=== PATIENT | female | born 1970 | race Caucasian/White ===

== ENCOUNTER 2022-11-25 12:18 | Day surgery (SDC) | payer OTHER, SELFPAY ==
[2022-11-25] VITALS (8 sets, daily range): BP systolic 105–154; BP diastolic 60–92; PULSE 58–97; RESP 14–19; TEMP 36.2–36.3; O2SAT 95–100
--- NOTE | ~2022-11-25 | CT_ITS ---
EXAMINATION: CT abdomen pelvis w con DATE: 11/25/2022 16:15 INDICATION: Right lower quadrant abdominal pain. TECHNIQUE: Computed tomography (CT) of the abdomen and pelvis was performed with 100 mL Omnipaque 350 intravenous contrast. Automated exposure control and iterative reconstruction technique were employe d. The dose-length product was 505.85 mGy-cm. COMPARISON: CT abdomen and pelvis 06/17/2011 FINDINGS: The visualized portions of the lung bases demonstrate mild atelectasis. No pleural effusion . The heart size is normal. No pericardial effusion. There is a 4 mm cyst in the liver. The gallbladd er, spleen, pancreas, adrenal glands, and right kidney are normal. There is a 5 mm cyst in left kidne y. The appendix is fluid-filled and dilated to 10 mm, increased from 5 mm on 06/17/2011. There are no p athologically enlarged lymph nodes. There is no free intraperitoneal fluid. There is mild thoracolumb ar spondylosis. IMPRESSION: 1. Acute appendicitis. I called this result to Gianni Ramirez. Reviewed, dictated and finalized at location A.
[2022-11-25 12:48] LABS: Basophils Absolute Auto 0.1 K/mm3 (0.0-0.1); Basophils Percent Auto 0.9 % (0.2-1.2); Eosinophils Absolute Auto 0.1 K/mm3 (0-0.3); Eosinophils Percent Auto 0.9 % (0-4.4); Hematocrit 41.7 % (37.0-47.0); Hemoglobin 13.7 g/dL (12.0-15.0); Immature Granulocyte Absolute 0.04 K/mm3 (0.00-0.031); Immature Granulocyte Percent A 0.5 % (0-0.5); Lymphocytes Absolute Auto 2.93 K/mm3 (0.9-3.2); Lymphocytes Percent Auto 36.5 % (18.3-44.2); Mean Corpuscular HGB Conc 32.9 g/dl (32-36); Mean Corpuscular Hemoglobin 30.9 pg (26-34); Mean Corpuscular Volume 93.9 fl (80-100); Monocytes Absolute Auto 0.4 K/mm3 (0.1-0.6); Monocytes Percent Auto 5.2 % (2.6-8.5); Neutrophils Absolute Auto 4.5 K/mm3 (1.3-6.7); Platelet Count Result 223 k/mm3 (150-375); Red Blood Count 4.44 M/mm3 (4.2-5.4); Red Cell Distribution Width 12.8 % (11.5-14.5)
[2022-11-25 12:58] LABS: Alanine Aminotransferase 17 U/L (6-35); Albumin Level 3.6 g/dL (3.5-5.1); Alkaline Phosphatase 49 U/L (38-126); Anion Gap 7 mmol/L (8-16); Aspartate Amino Transferase 21 U/L (14-36); Bilirubin,Total 0.8 mg/dL (0.2-1.3); Blood Urea Nitrogen 10 mg/dL (7-17); Calcium 8.7 mg/dL (8.4-10.2); Carbon Dioxide 23 mmol/L (22-30); Chloride 107 mmol/L (98-107); Estimated CRCL calculation 74 ml/min; Estimated Glomerular Filt Rate > 60; Glucose 108 mg/dL (65-110); Lipase 60 U/L (23-300); Potassium 3.9 mmol/L (3.4-5.0); Sodium 137 mmol/L (137-145)
[2022-11-25 13:05] LABS: Appearance Urine Cloudy (Clear); Bacteria Urine 1+ /hpf; Bilirubin Urine Negative (Negative); Blood Urine 1+ (Negative); Color Urine Yellow (Yellow); Glucose Urine UA Negative (Negative); Ketones Urine Trace mg/dL (Negative); Leukocyte Esterase Ur Negative LEU/UL (Negative); Need Manual Microscopic Reviewed; Nitrate Urine Negative (Negative); Non Pathogenic Casts 0-2; Protein Urine Negative (Negative); Specific Grav Ur 1.019 (1.001-1.035); Squamous Epithelial Cell Urine Moderate /hpf (Few); Urobilinogen Urine 0.2 mg/dL (<2.0); WBC Urine 0-5 /hpf; pH Urine 5.5 (5.0-9.0)
[2022-11-25 13:07] LABS: Add Urine Microscopic? YES
--- NOTE | 2022-11-25 14:31 | ED.GENADULT ---
HPI - General Adult General Chief complaint: Abdominal Pain Stated complaint: right groin pain Time Seen by Provider: 11/25/22 13:18 Source: patient Mode of arrival: ambulatory Limitations: no limitations History of Present Illness HPI narrative: This is a 52-year-old female who presents to the ED with chief complaint of right lower quadrant abdominal pain that started yesterday evening before dinner. Denies any nausea or vomiting. Denies any urinary symptoms. She states that the pain stays right there in the right lower quadrant and does not radiate. Describes it as sharp. She states it comes in waves. She right now she describes it as a 4 out of 10 pain. Denies fevers, chills, chest pain, shortness of breath, cough. States she is chronically constipated and often has gas pains due to this but wants to rule out something worse. Reports abdominal surgical history of tubal ligation but still has her ovaries. Related Data Allergies Allergy/AdvReac Type Severity Reaction Status Date / Time sulfamethizole Allergy Unknown rash Verified 09/07/19 08:06 sulfamethoxazole Allergy Unknown rash Verified 09/07/19 08:06 trimethoprim Allergy Unknown Rash Verified 09/07/19 08:06 PMFSH Past Medical History Medical History Hypothyroidism (acquired) Overeating Family History Family History Mother Patient's mother is in good health Father Patient's father is in good health Sibling Family history of malignant neoplasm of testis Other Diabetes mellitus Social History Social History Smoking status: Never smoker Second hand tobacco smoke exposure: No Alcohol intake: current Exam Narrative: GENERAL: Well-appearing, well-nourished, and in no acute distress. HEAD: Normocephalic, atraumatic. EYES: PERRLA and EOMI. ENT: Nares clear, no rhinorrhea or epistaxis. Mucous membranes moist. Oropharynx without tonsillar hypertrophy exudate or other lesions. NECK: Supple. No adenopathy or masses. CHEST: No respiratory distress. Clear to auscultation. No wheezes rales or rhonchi HEART: Regular rate and rhythm. No murmur heard. Normal peripheral pulses. ABDOMEN: Focal right lower quadrant tenderness present. Soft, otherwise nontender, nondistended, normal active bowel sounds. Negative Agnulo sign. MSK: Normal range of motion. No edema. SKIN: Warm, dry, no rash. NEURO: Alert and oriented x3. No focal deficits. PSYCH: Normal mood and affect. Course Vital Signs Vital signs: Vital Signs Temperature 97.1 F L 11/25/22 12:28 Pulse Rate 58 L 11/25/22 12:28 Respiratory Rate 17 11/25/22 12:28 Blood Pressure 154/87 H 11/25/22 12:28 Pulse Oximetry 100 11/25/22 12:28 Oxygen Delivery Room Air 11/25/22 12:28 Temperature 97.3 F L 11/25/22 18:25 Pulse Rate 84 11/25/22 18:25 Respiratory Rate 19 11/25/22 18:25 Blood Pressure 111/67 11/25/22 18:25 Pulse Oximetry 100 11/25/22 18:25 Oxygen Delivery Simple Face Mask 11/25/22 18:25 Oxygen Flow Rate 8 11/25/22 18:25 Medical Decision Making MDM Narrative Medical decision making narrative: This is a 52-year-old female who presents to the ED with chief complaint of right lower quadrant pain beginning last night. Vitals are normal. Afebrile. She has focal right lower quadrant tenderness on exam. No elevated white count. UA shows trace ketones and 1+ blood but no evidence of overt infection. CMP unremarkable. CT scan results were called to me. I called Dr. Keyes (general surgery) who wants to take the patient to the OR. She is not septic appearing but her pain is getting worse while she is here. Pain control was given. Antibiotics ordered but patient was taken to the OR before we were able to administer. Discussed the plan for surgery with the patient and she is understanding and ag
[2022-11-25] MEDS: ONDANSETRON INJ 4 MG/2 ML VIAL IV PUSH (16:26)
[2022-11-25] MEDS: MORPHINE SULFATE (*CRX) 4 MG/ML INJ IV PUSH (16:26)
--- NOTE | 2022-11-25 16:38 | PM.SD2 ---
Same Day Admit/Disch: HPI History of Present Illness Chief complaint: right lower quadrant pain Narrative: Nannette Zavala is a 52 year old female who started having pain in the right lower quadrant yesterday afternoon before dinner time. The pain persisted and in fact got worse. She does have some chronic constipation and gets episodes of abdominal pain. This pain persisted and she came to the emergency room. Exam in the emergency room showed focal tenderness in the right lower quadrant. Her white blood cell count was normal. She has not had any nausea or vomiting. She had a CT scan of the abdomen and pelvis which showed a 10 mm dilated appendix that was fluid filled and had some surrounding inflammation. It was read as acute appendicitis. She is taken to surgery now for laparoscopic appendectomy. [facility] Past Medical History Medical History Hypothyroidism (acquired) Overeating Family History Family History Mother Patient's mother is in good health Father Patient's father is in good health Sibling Family history of malignant neoplasm of testis Other Diabetes mellitus Social History Social History Smoking status: Never smoker Second hand tobacco smoke exposure: No Alcohol intake: current Same Day Admit/Disch: Med Pre-admit Medications Home Medications Medication Instructions Recorded Confirmed Type etonogestrel 0.12 mg-ethinyl See Rx Instructions vaginal ONCE 09/07/19 09/07/19 Rx estradiol 0.015 mg/24 hr vaginal #3 ea ring (NuvaRing) levothyroxine 112 mcg capsule 112 mcg PO DAILY #102 caps 09/07/19 09/07/19 Rx phentermine 37.5 mg capsule 37.5 mg PO DAILY #30 caps 09/07/19 09/07/19 Rx omeprazole 40 mg capsule,delayed 40 mg PO DAILY #90 caps 06/02/21 Rx release ketorolac 10 mg tablet 10 mg PO Q6H 4 days #16 tabs 11/25/22 Rx oxycodone-acetaminophen 5 mg-325 0.5 - 1 tablet PO Q6H PRN pain #10 11/25/22 Rx mg tablet tabs Exam Const: General: comfortable, no acute distress, alert and awake HENMT: Head: normocephalic and atraumatic Mouth: Yes Normal oral and palatal mucosa present Eyes: Conjunctivae: conjunctivae normal Pupils: Equal, round and reactive pupils present EOM: EOMs intact bilaterally Neck: Neck: normal visual inspection, no lymphadenopathy and nontender Resp: Effort & Inspection: normal respiratory effort Auscultation: clear to auscultation bilaterally Cardio: Rate: regular rate Rhythm: regular rhythm Heart sounds: no gallops, no murmurs and no rubs GI: Inspection: normal to inspection and non-distended GI Palp: Yes Soft to palpation, Yes Tenderness to palpation present (GI) ( tender with guarding right lower quadrant), Yes Guarding due to palpation present (GI), No Hepatomegaly present and No Splenomegaly present Auscultation: normal bowel sounds Skin: Lesions: no lesions Rashes: no rashes Neuro: General: no focal motor deficits and CN's II-XI intact bilaterally Cranial nerves: Yes Equal, round and reactive pupils present, Yes Bilaterally intact EOM present, Yes facial symmetry and Yes Midline tongue present Speech: normal speech Motor exam (neuro): 5/5 motor strength present throughout and Motor abnormalities not present Extrem: General: no clubbing, cyanosis or edema and edema Psych: Affect: normal affect Thought process: Normal thought process present Insight: Good insight present (Psych) DS: Data Data Completed and Pending Labs on day of discharge: Labs from last 24 hours 11/25/22 11/25/22 12:39 12:32 WBC 8.0 RBC 4.44 Hgb 13.7 Hct 41.7 MCV 93.9 MCH 30.9 MCHC 32.9 RDW 12.8 Plt Count 223 MPV 11.0 H Immature Gran % (Auto) 0.5 Neut % (Auto) 56.0 Lymph % (Auto) 36.5 [place] % (Auto) 5.2 Eos % (Auto) 0.9 Baso % (Auto) 0.9 Lymph # (Auto) 2.93
--- NOTE | 2022-11-25 16:46 | WPDHPUPDATE1 ---
History and Physical Update Update Date/Time: 11/25/22 16:46 History and Physical has been reviewed, including an updated exam of the patient. There are NO changes in the patient's condition. Risks, benefits, and alternatives have been discussed and questions answered. Patient agrees to proceed with procedure.
--- NOTE | 2022-11-25 17:01 | WPDANESEPP ---
Anes - Eval Pre Procedure Procedure: Operation Date: 11/25/22 17:00 Proposed Procedures p Laparoscopic Appendectomy - Chencho Keyes MD Date/Time: 11/25/22 17:01 Pre Op Diagnosis: right lower quadrant pain Patient Data Age: 52 Gender: F Height: 1.55 m Weight: 70.31 kg Last Vital Signs Temp 36.2 C L 11/25/22 12:28 Pulse 58 L 11/25/22 13:20 Resp 14 11/25/22 13:20 BP 121/92 H 11/25/22 13:20 Pulse Ox 99 11/25/22 13:20 O2 Del Method Room Air 11/25/22 13:20 Allergies Allergy/AdvReac Type Severity Reaction Status Date / Time sulfamethizole Allergy Unknown rash Verified 09/07/19 08:06 sulfamethoxazole Allergy Unknown rash Verified 09/07/19 08:06 trimethoprim Allergy Unknown Rash Verified 09/07/19 08:06 Home Medications Medication Instructions Recorded Confirmed Type etonogestrel 0.12 mg-ethinyl See Rx Instructions vaginal ONCE 09/07/19 09/07/19 Rx estradiol 0.015 mg/24 hr vaginal #3 ea ring (NuvaRing) levothyroxine 112 mcg capsule 112 mcg PO DAILY #102 caps 09/07/19 09/07/19 Rx phentermine 37.5 mg capsule 37.5 mg PO DAILY #30 caps 09/07/19 09/07/19 Rx omeprazole 40 mg capsule,delayed 40 mg PO DAILY #90 caps 06/02/21 Rx release Laboratory Tests 11/25/22 11/25/22 12:32 12:39 WBC 8.0 K/mm3 (4.5-10.0) RBC 4.44 M/mm3 (4.2-5.4) Hgb 13.7 g/dL (12.0-15.0) Hct 41.7 % (37.0-47.0) MCV 93.9 fl (80-100) MCH 30.9 pg (26-34) MCHC 32.9 g/dl (32-36) RDW 12.8 % (11.5-14.5) Plt Count 223 k/mm3 (150-375) MPV 11.0 H fl (7.4-10.4) Immature Gran % (Auto) 0.5 % (0-0.5) Neut % (Auto) 56.0 % (45.5-73.1) Lymph % (Auto) 36.5 % (18.3-44.2) [place] % (Auto) 5.2 % (2.6-8.5) Eos % (Auto) 0.9 % (0-4.4) Baso % (Auto) 0.9 % (0.2-1.2) Lymph # (Auto) 2.93 K/mm3 (0.9-3.2) [place] # (Auto) 0.4 K/mm3 (0.1-0.6) Eos # (Auto) 0.1 K/mm3 (0-0.3) Baso # (Auto) 0.1 K/mm3 (0.0-0.1) Abs Immat Gran (auto) 0.04 H K/mm3 (0.00-0.031) Absolute Neuts (auto) 4.5 K/mm3 (1.3-6.7) Absolute Nucleated RBC 0.0 K/mm3 (0.0-0.012) Nucleated RBC % 0.0 % (0.0-0.2) Sodium 137 mmol/L (137-145) Potassium 3.9 mmol/L (3.4-5.0) Chloride 107 mmol/L (98-107) Carbon Dioxide 23 mmol/L (22-30) Anion Gap 7 L mmol/L (8-16) BUN 10 mg/dL (7-17) Creatinine 0.70 mg/dL (0.7-1.0) Estim Creat Clear Calc 74 ml/min Estimated GFR > 60 (59 - ) Glucose 108 mg/dL (65-110) Calcium 8.7 mg/dL (8.4-10.2) Total Bilirubin 0.8 mg/dL (0.2-1.3) AST 21 U/L (14-36) ALT 17 U/L (6-35) Alkaline Phosphatase 49 U/L (38-126) Total Protein 6.0 L g/dL (6.3-8.2) Albumin 3.6 g/dL (3.5-5.1) Lipase 60 U/L (23-300) Urine Color Yellow (Yellow) Urine Appearance Cloudy H (Clear) Urine pH 5.5 (5.0-9.0) Ur Specific [place] 1.019 (1.001-1.035) Urine Protein Negative mg/dL (Negative) Urine Glucose (UA) Negative mg/dL (Negative) Urine Ketones Trace H mg/dL (Negative) Ur Blood (Man) 1+ H (Negative) Urine Nitrate Negative (Negative) Urine Bilirubin Negative (Negative) Urine Urobilinogen 0.2 mg/dL (<2.0) Add Ur Microanalysis Reviewed Leukocyte Esterase Rfl Negative LUZMA/UL (Negative) Urine RBC 3-5 H /hpf (0-2) Urine WBC 0-5 /hpf Ur Squamous Epith Cells Moderate /hpf (Few) Urine Bacteria 1+ H /hpf Urine Casts 0-2 Patient hx anesthesia problems: none Family hx anesthesia problems: none Results Review: All pre-operative results and documents have been reviewed as part of the pre-operative evaluation. [facility] Past Medical History Medical History (Reviewed 07
[2022-11-25] MEDS: metroNIDAZOLE 500 MG/ISO 100ML 500 MG/100 ML BAG 100 MG IVPB (17:13)
--- NOTE | 2022-11-25 17:13 | P.PNAN_ITS ---
Anes - Eval Final PreProcedure Day of Procedure 11/25/22 17:13 Patient weight: overweight Heart: regular rate and rhythm Lungs: clear to auscultation Airway: Mallampati scale class II Neurological: alert and oriented Last oral intake: >/= 8 hours ASA classification: II Emergent: no Anesthetic plan: proceed Anesthesia type and monitoring: general ETT and standard monitoring Results Review: All pre-operative results and documents have been reviewed as part of the pre- operative evaluation. Informed Consent: The patient's anesthetic plan and its attendant risks and benefits were discussed with the patient/family/POA. Questions were solicited and answers provided to the satisfaction of the patient/family/POA.
[2022-11-25] MEDS: BUPIVACAINE/EPINEPHRINE 0.25% 50 ML VIAL 20 ML INFILTRATE (17:36)
[2022-11-25] MEDS: KETOROLAC 30 MG/ML VIAL (*BKC) IV PUSH (18:05)
--- NOTE | 2022-11-25 18:14 | W.PM.PROC2 ---
Procedure Note - Detailed Date of Procedure 11/25/22 Pre-op Diagnosis Acute appendicitis Post-op Diagnosis Same Procedure Performed Laparoscopic appendectomy Surgeon Chencho Keyes MD Anesthesia General and Local (0.5% Marcaine with epinephrine) Indications Patient began having right lower quadrant abdominal pain yesterday evening. He got better and she went to bed but then this morning it was back and worse. It was persistent through and she came to the emergency room. She was noted to have tenderness in the right lower quadrant. She had an abnormal CT scan which showed a dilated appendix with that was fluid filled and had signs of inflammation. I reviewed her CT scan and the appendix was retrocecal. She had a normal white count. She is taken to surgery now for laparoscopic appendectomy. Findings The appendix was retrocecal in the retroperitoneum. The distal 3rd of the appendix appeared to be inflamed consistent with acute appendicitis. Description of Procedure Patient was taken to surgery and induced into general anesthesia. The abdomen is prepped and draped. Trocars were placed in the usual fashion in the left anterior axillary line. These were applied Medical optical trocars and replaced under direct visualization. The patient was placed in Trendelenburg with the right-side elevated. The appendix was difficult to visualize as the distal ileum was adherent to the right lateral sidewall and the appendix was retrocecal. I took down these distal ileal adhesions and then cut into the retroperitoneum. I dissected in the retroperitoneum and gradually exposed the appendix. The proximal appendix appeared normal but the distal appendix was dilated particularly at its tip. Eventually the appendix was fully mobilized. There were numerous adhesions to the appendix it had to be taken down. The appendix was then elevated and the mesoappendix was thoroughly cauterized and divided. The appendiceal artery was particularly cauterized and divided. We skeletonized the appendix at its base. I then ligated the base the appendix with a Vicryl endoloop. The appendix was amputated just above the ligature and the mucosa of the appendiceal stump was cauterized. The appendix was placed immediately in an Endo-Catch bag and retrieved through the 10 11 left lower quadrant trocar site. We replaced the trocar and then reviewed the areas of dissection as well as the appendiceal stump. All looked good with no evidence of bleeding or other problems. We then evacuated CO2 and removed the trocar sleeves. Skin wounds were closed with subcuticular 4-0 Monocryl skin suture. The wounds were dressed with Exofin surgical adhesive. The patient was awakened and taken to recovery in good condition. Sponge and needle counts were correct x2. Estimated Blood Loss -5 Drains No Packing No Pathology Yes (Appendix) Complications No immediate complications Condition Stable Disposition PACU [facility] Billing Surgery - Charge Forward: Surgery Billing (Laparoscopic appendectomy)
[2022-11-25] MEDS: LACTATED RINGERS 1,000 ML 30 ML IV CONT ×2 (18:25)
== END 2022-11-25 20:10 | disposition home or self-care (01) ==
LOC: ANHED 16:44 → ANHOUTPT 16:48
PROVIDERS: Emergency Medicine; Emergency Provider Physician Assistant; Visit Provider Surgery
PROC: 0DTJ4ZZ Resection of Appendix, Percutaneous Endoscopic Approach (ICD-10-PCS; CPT 44970; principal; 2022-11-25 17:00)
DX: K35.80 Unspecified acute appendicitis (principal); E03.9 Hypothyroidism, unspecified
CPT/HCPCS: 44970; 36415; 74177; 80053; 81001; 83690; 85025; 88304; 96374; 96375; 99285; J0330; J0690; J0696; J1100; J1836; J1885; J2250; J2270; J2405; J2704; J3010; J7030; J7120; Q9967

== ENCOUNTER 2023-10-18 16:48 | Emergency (ER) | payer BC, SELFPAY ==
--- NOTE | ~2023-10-18 | CT_ITS ---
EXAMINATION: CT abdomen pelvis wo con DATE: 10/18/2023 17:49 INDICATION: stone TECHNIQUE: Computed tomography (CT) of the abdomen and pelvis was performed without intravenous contr ast. Automated exposure control and iterative reconstruction technique were employed. The dose-length product was 333.48 mGy-cm. COMPARISON: 11/25/2022. FINDINGS: Lower thorax: Asymmetric soft tissue density in the right breast Liver: Normal. Biliary/Gallbladder: Gallbladder is normal. No bile duct dilation. Pancreas: No mass or duct dilation. Spleen: Normal. Adrenals:No mass. Kidneys: No suspicious mass, obstructing stone, or hydronephrosis. Punctate right lower pole calcific ation. GI tract: No small or large bowel dilation. Surgically absent appendix. Mesentery/Peritoneum: No ascites, mass, or free air. Retroperitoneum: No mass. Pelvis: Pelvic organs are within normal limits. Soft Tissues: Small uncomplicated fat-containing umbilical hernia. Bones: No acute osseous finding. IMPRESSION: Asymmetric soft tissue density in the right breast, recommend diagnostic breast ultrasound and mammog soo further evaluation. No acute abdominopelvic process detected. Specifically, no CT evidence of obstructive uropathy. Punctate right lower pole nephrolithiasis. Reviewed, dictated and finalized at location K. IMPRESSION: Asymmetric soft tissue density in the right breast, recommend diagnostic breast ultrasound and mammography further evaluation. No acute abdominopelvic process detected. Specifically, no CT evidence of obstructive uropathy. Punctate right lower pole nephrolithiasis.
--- NOTE | ~2023-10-18 | US_ITS ---
EXAMINATION: US pelvic complete w TV DATE: 10/18/2023 19:47 INDICATION: RLQ pain TECHNIQUE: Multiple transabdominal and endovaginal sonographic images of the pelvis were obtained. COMPARISON: CT abdomen pelvis, same date. FINDINGS: Uterus: 7.7 x 3.0 x 4.7 cm. Endometrial complex measures 7 mm. Irregular endometrium with indistinct margins. 9 mm hypoechoic focus in the endometrial cavity. Right Ovary: 2.5 x 1.6 x 2.0 cm. Vascular flow is present. 1.6 cm simple cyst. Left Ovary: Not visualized. There is no free fluid in the pelvis. IMPRESSION: Irregular, thickened endometrium. 9 mm hypoechoic focus in the endometrial cavity which may represent clot, polyp or other mass. Consider gynecology referral for sonohysterography and/or endometrial laron pling. Left ovary not visualized, grossly normal appearance on the prior CT. Reviewed, dictated and finalized at location K. IMPRESSION: Irregular, thickened endometrium. 9 mm hypoechoic focus in the endometrial cavi ty which may represent clot, polyp or other mass. Consider gynecology referral for sonohysterography and/or endometrial sampling. Left ovary not visualized, grossly normal appearance on the prior CT.
[2023-10-18 16:49] VITALS: BP 169/99; PULSE 57; RESP 18; TEMP 36.4; O2SAT 100
[2023-10-18 17:16] LABS: Basophils Absolute Auto 0.1 K/mm3 (0.0-0.1); Basophils Percent Auto 0.8 % (0.2-1.2); Eosinophils Absolute Auto 0.1 K/mm3 (0-0.3); Eosinophils Percent Auto 0.9 % (0-4.4); Hematocrit 44.4 % (37.0-47.0); Hemoglobin 14.3 g/dL (12.0-15.0); Immature Granulocyte Absolute 0.04 K/mm3 (0.00-0.031); Immature Granulocyte Percent A 0.5 % (0-0.5); Lymphocytes Absolute Auto 2.64 K/mm3 (0.9-3.2); Lymphocytes Percent Auto 30.7 % (18.3-44.2); Mean Corpuscular HGB Conc 32.2 g/dl (32-36); Mean Corpuscular Hemoglobin 31.2 pg (26-34); Mean Corpuscular Volume 96.7 fl (80-100); Mean Platelet Volume 11.7 fl (7.4-10.4); Monocytes Absolute Auto 0.5 K/mm3 (0.1-0.6); Monocytes Percent Auto 5.6 % (2.6-8.5); Neutrophils Absolute Auto 5.3 K/mm3 (1.3-6.7); Neutrophils Percent Auto 61.5 % (45.5-73.1); Platelet Count Result 237 k/mm3 (150-375); Red Blood Count 4.59 M/mm3 (4.2-5.4); White Blood Count 8.6 K/mm3 (4.5-10.0)
[2023-10-18 17:21] LABS: Appearance Urine Clear (Clear); Bacteria Urine Rare /hpf; Bilirubin Urine Negative (Negative); Blood Urine Non-Hemolyzed Trace (Negative); Color Urine Yellow (Yellow); Glucose Urine UA Negative (Negative); Ketones Urine Negative (Negative); Leukocyte Esterase Ur Negative LEU/UL (Negative); Nitrate Urine Negative (Negative); Non Pathogenic Casts 0-2; Protein Urine Negative (Negative); Specific Grav Ur 1.017 (1.001-1.035); Squamous Epithelial Cell Urine Few /hpf (Few); WBC Urine 0-5 /hpf (0-3)
[2023-10-18 17:29] LABS: Add Urine Microscopic? YES
[2023-10-18 17:30] LABS: Alanine Aminotransferase 17 U/L (6-35); Albumin Level 4.6 g/dL (3.5-5.1); Alkaline Phosphatase 49 U/L (38-126); Anion Gap 5 mmol/L (4-12); Aspartate Amino Transferase 23 U/L (14-36); Bilirubin,Total 0.6 mg/dL (0.2-1.3); Blood Urea Nitrogen 16 mg/dL (7-17); Calcium 9.4 mg/dL (8.4-10.2); Carbon Dioxide 25 mmol/L (22-30); Chloride 107 mmol/L (98-107); Estimated CRCL calculation 58 ml/min; Estimated Glomerular Filt Rate > 60; Glucose 99 mg/dL (65-110); Lipase 68 U/L (23-300); Potassium 4.3 mmol/L (3.4-5.0); Sodium 137 mmol/L (137-145)
--- NOTE | 2023-10-18 17:41 | ED.ABDPAIN ---
HPI - Abdominal Pain General Chief Complaint: Abdominal Pain <CANDY Greco Last Filed: 10/18/23 23:08> Stated Complaint: abd pain <CANDY Greco Last Filed: 10/18/23 23:08> Time Seen by Provider: 10/18/23 17:24 <Char Berrios PA-C - Last Filed: 10/18/23 23:08> History of Present Illness HPI narrative: 52-year-old female with a history of appendectomy and partial hysterectomy presents to the emergency department for right lower quadrant abdominal pain since 11:00 a.m. this morning. Patient states the pain is intermittent and sharp and cramping in nature. She denies known aggravating or alleviating factors. She reports a remote history of kidney stones. Denies dysuria or hematuria, nausea or vomitingiarrhea, fever. Last bowel movement was today. <CANDY Greco Last Filed: 10/18/23 23:08> Related Data Allergies/Adverse Reactions: Allergies Allergy/AdvReac Type Severity Reaction Status Date / Time sulfamethizole Allergy Unknown rash Verified 10/18/23 17:00 sulfamethoxazole Allergy Unknown rash Verified 10/18/23 17:00 trimethoprim Allergy Unknown Rash Verified 10/18/23 17:00 <Char Berrios PA-C - Last Filed: 10/18/23 23:08> Review of Systems Review of Systems: CONSTITUTIONAL: Denies fever, chills, or sweats. EYES: Denies visual changes, redness, or discharge. ENT: Denies rhinorrhea, congestion, sore throat, or otalgia. CARDIOVASCULAR: Denies chest pain, palpitations, or edema. RESPIRATORY: Denies cough or dyspnea. GASTROINTESTINAL: See HPI GENITOURINARY: Denies dysuria or hematuria. SKIN: Denies rash or itching. MUSCULOSKELETAL: Denies back pain, joint pain, or myalgia. NEUROLOGIC: Denies headache, numbness, or weakness. PSYCHIATRIC: Denies anxiety or depression. <CANDY Greco Last Filed: 10/18/23 23:08> PMFSH Past Medical History Medical History: Medical History Hypothyroidism (acquired) Overeating <Char Berrios PA-C - Last Filed: 10/18/23 23:08> Surgical History Surgical History: Surgical History History of laparoscopic appendectomy 11/25/2022 - laparoscopic appendectomy <Char Berrios PA-C - Last Filed: 10/18/23 23:08> Family History Family History: Family History Mother Patient's mother is in good health Father Patient's father is in good health Sibling Family history of malignant neoplasm of testis Other Diabetes mellitus <Char Berrios PA-C - Last Filed: 10/18/23 23:08> Social History Social History: Social History Smoking status: Never smoker Second hand tobacco smoke exposure: No Alcohol intake: current <Char Berrios PA-C - Last Filed: 10/18/23 23:08> Exam Narrative: GENERAL: Well-appearing, well-nourished, and in no acute distress. HEAD: Normocephalic, atraumatic. ENT: Nares clear, no rhinorrhea or epistaxis. Mucous membranes moist. NECK: Supple. CHEST: Clear to auscultation. No respiratory distress. HEART: Regular rate and rhythm. No murmur heard. Normal peripheral pulses. ABDOMEN: Normoactive bowel sounds. Abdomen soft with tenderness in the right lower quadrant. No rebound, guarding or rigidity. No CVA tenderness. EXTREMITIES: Normal range of motion. No edema. SKIN: Warm, dry, no rash. NEURO: No focal deficits. Alert and oriented x3 <Char Berrios PA-C - Last Filed: 10/18/23 23:08> Course [employer]OR/PA Physician Supervision For this patient encounter, I reviewed the FI[employer] HARVEST CONTRACTOR or PA documentation, treatment plan, and medical decision making; and I had [id number] time with this patient. <Manny Malik MD - Last Filed: 10/22/23 07:01> Vital Signs Vital signs: Vital Signs Temperature 97.6 F
[2023-10-18] MEDS: SODIUM CHLORIDE 0.9% IV 1,000 ML 999 ML IV CONT (17:56)
[2023-10-18] MEDS: ONDANSETRON INJ 4 MG/2 ML VIAL IV PUSH (17:57)
[2023-10-18] MEDS: MORPHINE SULFATE (*CRX) 4 MG/ML INJ IV PUSH (17:57)
[2023-10-18 20:38] VITALS: BP 133/86; PULSE 83; RESP 15; TEMP 36.8; O2SAT 99
== END 2023-10-18 20:35 | disposition home or self-care (01) ==
PROVIDERS: Emergency Medicine; Emergency Provider Physician Assistant
DX: R10.31 Right lower quadrant pain (principal); N83.291 Other ovarian cyst, right side; R93.89 Abnormal findings on diagnostic imaging of other specified body structures; N63.10 Unspecified lump in the right breast, unspecified quadrant; E03.9 Hypothyroidism, unspecified; Z90.711 Acquired absence of uterus with remaining cervical stump
CPT/HCPCS: 36415; 74176; 76830; 76856; 80053; 81001; 83690; 85025; 96361; 96374; 96375; 99284; J2270; J2405; J7030